=== PATIENT | male | born 1935 | race Caucasian/White ===

== ENCOUNTER → 2017-12-31 | Outpatient (CLI) | payer MEDICARE, BC ==
--- NOTE | 2017-12-31 14:14 | CT ---
EXAMINATION TYPE: CT chest wo con DATE OF EXAM: 12/31/2017 COMPARISON: 10/17/2009 HISTORY: Lung nodules CT DLP: [address] of the chest was performed with lung and mediastinal window settings submitted. The la ck of contrast limits evaluation of the vascular, mediastinal and parenchymal structures including th e upper abdomen. LUNGS: Ill-defined density within the lingula measures 1.8 cm in greatest dimension may reflect posti nflammatory or inflammatory change. Underlying lesion is difficult to exclude however and short-term follow-up study is advised. The remainder of the lungs are nodular mass. MEDIASTINUM/KAMLESH: Thoracic aorta is ectatic and atheromatous with limited evaluation given lack of c ontrast. The heart is enlarged. No evidence for mediastinal mass. No lymph nodes greater than 1c m. UPPER ABDOMEN: Solid appearing lesion upper pole left kidney measuring approximately 6 cm. Contrast-e nhanced CT recommended. Layering gallstones. Multiple renal cysts. Gastric banding device. OTHER: No significant other abnormality. IMPRESSION: 1. Ill-defined density within the lingula measures 1.8 cm in greatest dimension may reflect postinfl ammatory or inflammatory change. Underlying lesion is difficult to exclude however and short-term fol low-up study is advised. Follow-up CT or mass. 2. Solid-appearing left renal lesion.
== END | disposition home or self-care (01) ==
LOC: RADCTMAIN 12:35
PROVIDERS: ATTEND Internal Medicine Critical Care Medicine
DX: R91.8 Other nonspecific abnormal finding of lung field (principal)
CPT/HCPCS: 71250

== ENCOUNTER 2018-07-14 13:33 | Emergency (ER) | payer MEDICARE, BC ==
[2018-07-14 13:44] VITALS: RESP 18; TEMP 98
[2018-07-14 14:53] LABS: Basophils % (A) 1 %; Eosinophils # (A) 0.2 k/uL (0-0.7); Eosinophils % (A) 2 %; Lymphocytes # (A) 1.7 k/uL (1.0-4.8); Lymphocytes % (A) 21 %; MCHC 31.8 g/dL (31.0-37.0); MCV 94.3 fL (80.0-100.0); Mean Platelet Volume 6.7; Monocytes # (A) 0.5 k/uL (0-1.0); Monocytes % (A) 6 %; Neutrophils # (A) 5.5 k/uL (1.3-7.7); Neutrophils % (A) 68 %; Platelet Count 193 k/uL (150-450); RBC 4.34 m/uL (4.30-5.90); RDW 14.2 % (11.5-15.5); WBC 8.1 k/uL (3.8-10.6)
[2018-07-14 15:01] LABS: Partial Thromboplastin Time 24.4 sec (22.0-30.0); Prothrombin Time 10.8 sec (9.0-12.0)
[2018-07-14 15:04] LABS: Albumin 4.1 g/dL (3.5-5.0); Calcium 9.7 mg/dL (8.4-10.2); Potassium 4.4 mmol/L (3.5-5.1); Total Bilirubin 0.7 mg/dL (0.2-1.3)
--- NOTE | 2018-07-14 15:19 | ED ---
General Adult HPI - General Chief complaint: Neuro Symptoms/Deficit Stated complaint: double vision, SOB Time Seen by Provider: 07/14/18 14:00 Source: patient, family, RN notes reviewed, old records reviewed Mode of arrival: wheelchair Limitations: no limitations - History of Present Illness Initial comments: 85-year-old male presents for evaluation of intermittent double vision. Patient describes double vision as vertical, improves with closing of one eye. Last several minutes at a time. He did have an episode just prior to arrival. This was resolved prior to my evaluation. He's been having these episodes for several years. They always resolved spontaneously. No trauma . Patient denies blurry vision or denies focal numbness or weakness. Denies chest pain. Patient's daughter is accompanying him, she felt today was the day for this to be evaluated as a rat the hospital for an outpatient computed tomography scan of the chest. Patient denies headache. Denies any complaints the time my evaluation. - Related Data Home Medications Medication Instructions Recorded Confirmed Albuterol Nebulized (Conc) 2.5 mg PO RT-Q8H 07/14/18 07/14/18 [Ventolin Nebulized (Conc)] Amiodarone [Cordarone] 200 mg PO DAILY 07/14/18 07/14/18 Apixaban [Eliquis] 5 mg PO BID 07/14/18 07/14/18 Atorvastatin [Lipitor] 80 mg PO HS 07/14/18 07/14/18 Budesonide-Formot 160-4.5 Mcg 1 puff INHALATION RT-BID 07/14/18 07/14/18 [Symbicort 160-4.5 Mcg Inhaler] Carvedilol [Coreg] 3.125 mg PO BID 07/14/18 07/14/18 Ferrous Sulfate [Feosol] 325 mg PO BID 07/14/18 07/14/18 Furosemide [Lasix] 1 - 2 tab PO DAILY 07/14/18 07/14/18 Gabapentin [Neurontin] 100 mg PO BID 07/14/18 07/14/18 Midodrine HCl [ProAmatine] 10 mg PO TID 07/14/18 07/14/18 Nitroglycerin Sl Tabs [Nitrostat] 0.4 mg SL DIRECTED 07/14/18 07/14/18 Pantoprazole [Protonix] 40 mg PO DAILY 07/14/18 07/14/18 Tiotropium 18 Mcg/Puff [Spiriva] 1 puff INHALATION RT-DAILY 07/14/18 07/14/18 Allergies Allergy/AdvReac Type Severity Reaction Status Date / Time ceftriaxone [From Rocephin] Allergy Unknown Verified 07/14/18 14:18 zolpidem [From Ambien] AdvReac Hallucinati Verified 07/14/18 14:18 ons Review of Systems ROS Statement: Those systems with pertinent positive or pertinent negative responses have been documented in the HPI. ROS Other: All systems not noted in ROS Statement are negative. Past Medical History Past Medical History: Atrial Fibrillation, Heart Failure, GERD/Reflux, Hyperlipidemia, Hypertension, Pneumonia History of Any Multi-Drug Resistant Organisms: None Reported Past Surgical History: Heart Catheterization With Stent, Pacemaker Additional Past Surgical History / Comment(s): AAA repair, valve repair, valve replacement Past Psychological History: No Psychological Hx Reported Smoking Status: Never smoker Past Alcohol Use History: None Reported Past Drug Use History: None Reported General Exam Limitations: no limitations General appearance: alert, in no apparent distress Head exam: Present: atraumatic, normocephalic Eye exam: Present: normal appearance, PERRL, EOMI. Absent: scleral icterus, conjunctival injection, nystagmus, periorbital swelling, periorbital tenderness ENT exam: Present: normal exam Neck exam: Present: normal inspection. Absent: tenderness, meningismus Respiratory exam: Present: normal lung sounds bilaterally. Absent: respiratory distress, wheezes Cardiovascular Exam: Present: regular rate, normal rhythm GI/Abdominal exam: Present: soft. Absent: distended, tenderness, guarding Extremities exam: Present: normal inspection, normal capillary refill. Absent: pedal edema Neurological exam: Present: alert, oriented X3, CN II-XII intact. Absent: motor sensory deficit Psychiatric exam: Present: normal affect, normal mood Skin exam: Present: warm, dry, intact. Absent: cyanosis, diaphoretic Course Vital Signs 07/14/18 07/14/18 13:38 13:58 Temperature 98.0 F Pulse Rate 79 Respiratory 18 Rate Blood Pressure 107/73 117/80 O2 Sat by Pulse 93 L Oximetry EKG Findings - EKG Comments: EKG Findings:: EKG, AV dual paced rhythm, rate of 82, CO interval 150, QRS duration 182, QTC 493 Medical Decision Making - Medical Decision Making 82-year-old male presenting with intermittent vertical double vision ongoing for months to years. Patient was encouraged to present to the emergency department today with his daughter. Patient himself does not have any complaints, his symptoms resolved prior to arrival. 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 No acute intracranial hemorrhage, there is no mass effect. Remote ischemia. Patient has normal CBC, normal CMP. He is on Ahlquist, this protection from stroke risk. I have low suspicion for stroke in this patient as his symptoms have been ongoing, intermittent and resolved without intervention. I do feel this patient will benefit from outpatient neurology and ophthalmology consultation. Patient is very eager for discharge. Does not want any further evaluation or treatment. Continue medications as prescribed. - Lab Data Result diagrams: 07/14/18 14:07 07/14/18 14:07 Lab Results 07/14/18 07/14/18 07/14/18 Range/Units 14:07 14:07 14:07 WBC 8.1 (3.8-10.6) k/uL RBC 4.34 (4.30-5.90) m/uL Hgb 13.0 (13.0-17.5) gm/dL Hct 41.0 (39.0-53.0) % MCV 94.3 (80.0-100.0) fL MCH 30.0 (25.0-35.0) pg MCHC 31.8 (31.0-37.0) g/dL RDW 14.2 (11.5-15.5) % Plt Count 193 (150-450) k/uL Neutrophils % 68 % Lymphocytes % 21 % Monocytes % 6 % Eosinophils % 2 % Basophils % 1 % Neutrophils # 5.5 (1.3-7.7) k/uL Lymphocytes # 1.7 (1.0-4.8) k/uL Monocytes # 0.5 (0-1.0) k/uL Eosinophils # 0.2 (0-0.7) k/uL Basophils # 0.0 (0-0.2) k/uL PT (9.0-12.0) sec INR (<1.2) APTT (22.0-30.0) sec Sodium 141 (137-145) mmol/L Potassium 4.4 (3.5-5.1) mmol/L Chloride 104 (98-107) mmol/L Carbon Dioxide 28 (22-30) mmol/L Anion Gap 9 mmol/L BUN 28 H (9-20) mg/dL Creatinine 1.22 (0.66-1.25) mg/dL Est GFR (CKD-EPI)AfAm 64 (>60 ml/min/1.73 sqM) Est GFR (CKD-EPI)NonAf 56 (>60 ml/min/1.73 sqM) Glucose 143 H (74-99) mg/dL Calcium 9.7 (8.4-10.2) mg/dL Total Bilirubin 0.7 (0.2-1.3) mg/dL AST 33 (17-59) U/L ALT 48 (21-72) U/L Alkaline Phosphatase 141 H (38-126) U/L Total Creatine Kinase 46 L (55-170) U/L CK-MB (CK-2) 1.3 (0.0-2.4) ng/mL CK-MB (CK-2) Rel Index 2.8 Troponin I 0.018 (0.000-0.034) ng/mL Total Protein 7.0 (6.3-8.2) g/dL Albumin 4.1 (3.5-5.0) g/dL 07/14/18 Range/Units 14:07 WBC (3.8-10.6) k/uL RBC (4.30-5.90) m/uL Hgb (13.0-17.5) gm/dL Hct (39.0-53.0) % MCV (80.0-100.0) fL MCH (25.0-35.0) pg MCHC (31.0-37.0) g/dL RDW (11.5-15.5) % Plt Count (150-450) k/uL Neutrophils % % Lymphocytes % % Monocytes % % Eosinophils % % Basophils % % Neutrophils # (1.3-7.7) k/uL Lymphocytes # (1.0-4.8) k/uL Monocytes # (0-1.0) k/uL Eosinophils # (0-0.7) k/uL Basophils # (0-0.2) k/uL PT 10.8 (9.0-12.0) sec INR 1.0 (<1.2) APTT 24.4 (22.0-30.0) sec Sodium (137-145) mmol/L Potassium (3.5-5.1) mmol/L Chloride (98-107) mmol/L Carbon Dioxide (22-30) mmol/L Anion Gap mmol/L BUN (9-20) mg/dL Creatinine (0.66-1.25) mg/dL Est GFR (CKD-EPI)AfAm (>60 ml/min/1.73 sqM) Est GFR (CKD-EPI)NonAf (>60 ml/min/1.73 sqM) Glucose (74-99) mg/dL Calcium (8.4-10.2) mg/dL Total Bilirubin (0.2-1.3) mg/dL AST (17-59) U/L ALT (21-72) U/L Alkaline Phosphatase (38-126) U/L Total Creatine Kinase (55-170) U/L CK-MB (CK-2) (0.0-2.4) ng/mL CK-MB (CK-2) Rel Index Troponin I (0.000-0.034) ng/mL Total Protein (6.3-8.2) g/dL Albumin (3.5-5.0) g/dL Disposition Clinical Impression: [place] Disposition: HOME SELF-CARE Condition: Good Instructions (If sedation given, give patient instructions): [place] (ED) Is patient prescribed a controlled substance at d/c from ED?: No Referrals: Wang Barbour MD [Primary Care Provider] - 1-2 days Bill Najera MD [STAFF PHYSICIAN] - 1-2 days Shady Yoo MD [STAFF PHYSICIAN] - 1-2 days Time of Disposition: 16:06
[2018-07-14 15:20] LABS: Creatine Kinase MB 1.3 ng/mL (0.0-2.4); Troponin I 0.018 ng/mL (0.000-0.034)
--- NOTE | 2018-07-14 15:20 | CT ---
EXAMINATION TYPE: CT brain wo con DATE OF EXAM: 07/14/2018 COMPARISON: None HISTORY: Double vision. CT DLP: 1201.4 mGycm Automated exposure control for dose reduction was used. FINDINGS: Nasal septal deviation noted. There is a metallic foreign body along the medial margin of the right o rbit. Mild to moderate generalized degenerative change. Periventricular low attenuation is compatible with remote microvascular ischemia. No midline shift or mass effect. Partially empty sella turcica noted. A faint low-attenuation within the white matter bilaterally is n onspecific but most typical remote microvascular ischemia. Area of low attenuation involving the marlene likely is artifactual. Tiny area of abnormal attenuation involving the basal ganglia suggestive of r emote lacunar infarct. Additional tiny metallic density overlying the right frontal bone within the s ubcutaneous tissues compatible with foreign body. IMPRESSION: NO ACUTE HEMORRHAGE OR MASS EFFECT. IF THERE IS CLINICAL CONCERN FOR ACUTE ISCHEMIA CORRELATE WITH MR I CLINICALLY WARRANTED. DEGENERATIVE AND NONSPECIFIC WHITE MATTER CHANGES MOST TYPICAL REMOTE MICROVASCULAR ISCHEMIA. CORRELA TE CLINICALLY. CHRONIC APPEARING FOREIGN BODY DISCUSSED ABOVE.
--- NOTE | 2018-07-14 15:26 | XR ---
EXAMINATION TYPE: XR chest 2V DATE OF EXAM: 07/14/2018 COMPARISON: NONE TECHNIQUE: PA and lateral views submitted. HISTORY: Altered mental status FINDINGS: Hypertrophic and degenerative change of the spine. There is a compression deformity in the lower lumb ar junction. Cardiac device and evidence of previous cardiac valve replacement surgery noted. Subsegmental consoli dation at both lung bases. Atherosclerotic change aorta. Appears to be an intra-abdominal stent which may be related to the aorta correlate clinically. Biapical pleural thickening noted. There are subse gmental consolidation involving the left lower lobe. Suggestion of a lap band device in the abdomen. IMPRESSION: 1. Basilar atelectasis favored over pneumonia correlate clinically.
[2018-07-14 16:47] VITALS: BP 151/87; PULSE 80
== END 2018-07-14 16:47 | disposition home or self-care (01) ==
LOC: EC 13:33
DX: H53.2 Diplopia (principal); R06.02 Shortness of breath; I48.91 Unspecified atrial fibrillation; I11.0 Hypertensive heart disease with heart failure; I50.9 Heart failure, unspecified; K21.9 Gastro-esophageal reflux disease without esophagitis; E78.5 Hyperlipidemia, unspecified; Z95.5 Presence of coronary angioplasty implant and graft; Z95.0 Presence of cardiac pacemaker; Z95.2 Presence of prosthetic heart valve; Z98.890 Other specified postprocedural states; Z79.01 Long term (current) use of anticoagulants; Z79.51 Long term (current) use of inhaled steroids; Z79.899 Other long term (current) drug therapy; Z88.1 Allergy status to other antibiotic agents; Z88.8 Allergy status to other drugs, medicaments and biological substances
CPT/HCPCS: 36415; 70450; 71046; 80053; 82550; 82553; 84484; 85025; 85610; 85730; 93005; 99285

== ENCOUNTER → 2018-07-14 | Outpatient (CLI) | payer MEDICARE, BC ==
--- NOTE | 2018-07-14 13:58 | CT ---
EXAMINATION TYPE: CT chest wo con DATE OF EXAM: 07/14/2018 COMPARISON: CT chest December 31, 2017. CT chest October 17, 2009 HISTORY: Multiple lung nodules, prior abnormal CT. CT DLP: 655.4 mGycm. Automated Exposure Control for Dose Reduction was Utilized. TECHNIQUE: CT scan of the thorax is performed without IV contrast. FINDINGS: LUNGS: There is interval resolution of ill-defined density or regular consolidation in the lingula wi th minimal residual linear scarring and/or atelectasis near axial image 36. No new suspicious nodules or masses are identified. There is mild to moderate biapical pleural/parenchymal scarring redemonstr ated. There is dependent atelectasis in the left lower lobe redemonstrated. No pleural effusion or pn eumothorax is seen. MEDIASTINUM: Lack of IV contrast is noted to limit evaluation for mediastinal and especially hilar ad enopathy. There are no definitive greater than 1 cm hilar or mediastinal lymph nodes. No cardiomega ly or pericardial effusion is seen. 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 There is multilead pacemaker again seen. There is stent graft at aortic root redemonstra kelsie. OTHER: Lap band device epigastric region is stable. Dependent small gallstones in gallbladder redemon strated. There is cortical thinning in both kidneys with several simple appearing cysts redemonstrate d. There is more suspicious exophytic hyperdense lesion anteriorly upper pole level left kidney measu ring roughly 2.6 cm axial image 60 redemonstrated . There is partial visualization of stent graft inf rarenal abdominal aorta identified. Mild height loss superior T11 endplate similar to prior study not ed. IMPRESSION: 1. Interval resolution of lingular density or irregular consolidation consistent with postinflammator y etiology. 2. Persistent suspicious anterior left upper pole renal lesion worrisome for neoplasm. Advise imaging follow-up if has not been performed since prior study.
== END ==
LOC: RADCTMAIN 13:12
PROVIDERS: ATTEND Internal Medicine Critical Care Medicine
DX: R91.8 Other nonspecific abnormal finding of lung field (principal)
CPT/HCPCS: 71250